=== PATIENT | female | born 1995 | race African-American/Black ===

== ENCOUNTER 2021-07-14 12:45 | Emergency (ER) | payer OTHER ==
[~2021-07-14] VITALS: Ht 149.9 cm; Wt 60.8 kg
[2021-07-14 12:46] VITALS: BP 121/80
--- NOTE | 2021-07-14 13:55 | REP ---
INDICATION: trauma COMPARISON: None. TECHNIQUE: AP, lateral, bilateral oblique views. FINDINGS: No acute fracture or dislocation. Skeletal structures and joint spaces are intact and normal. Ankle mortise appears stable. No subcutaneous emphysema or radiodense foreign body. IMPRESSION: Normal right ankle radiograph series. <Electronically signed by Henrik Chun > 07/14/21 [id number]
== END 2021-07-14 15:24 | disposition home or self-care (01) ==
LOC: M ED 12:45
DX: S93.401A Sprain of unspecified ligament of right ankle, initial encounter (principal); X50.9XXA Other and unspecified overexertion or strenuous movements or postures, initial encounter; Y92.018 Other place in single-family (private) house as the place of occurrence of the external cause; Z88.0 Allergy status to penicillin

== ENCOUNTER 2021-09-27 15:31 | Emergency (ER) | payer OTHER ==
[~2021-09-27] VITALS: Ht 160 cm; Wt 56.8 kg
[2021-09-27 18:00] LABS: HEMATOCRIT 40.7 % (36.0-47.0); HEMOGLOBIN 13.8 g/dl (12.0-15.5); MEAN CORPUSCULAR HEMOGLOBIN 29.2 pg (27.0-33.0); MEAN CORPUSCULAR HGB CONC 33.9 g/dl (32.0-36.5); MEAN CORPUSCULAR VOLUME 86.2 fl (80.0-96.0); PLATELET COUNT, AUTOMATED 286 10^3/uL (150-450); RED BLOOD COUNT 4.72 10^6/uL (4.00-5.40)
[2021-09-27 18:23] LABS: HCG, SERUM QUALITATIVE POSITIVE (NEGATIVE)
[2021-09-27 18:30] LABS: ACETAMINOPHEN LEVEL < 2.0 UG/ML (10.0-30.0); ALT/SGPT 24 U/L (12-78); BILIRUBIN,DIRECT 0.1 MG/DL (0.0-0.2); BILIRUBIN,TOTAL 0.4 MG/DL (0.2-1.0); BLOOD UREA NITROGEN 11 MG/DL (7-18); CALCIUM LEVEL 9.1 MG/DL (8.5-10.1); CARBON DIOXIDE LEVEL 25 MEQ/L (21-32); CHLORIDE LEVEL 106 MEQ/L (98-107); CREATININE FOR GFR 0.73 MG/DL (0.55-1.30); ETHYL ALCOHOL (ETHANOL) 0.003 % (0.000-0.010); GLOMERULAR FILTRATION RATE > 60.0 (>60); GLUCOSE, FASTING 72 MG/DL (70-100); POTASSIUM SERUM 3.8 MEQ/L (3.5-5.1); SALICYLATE LEVEL < 1.7 MG/DL (5.0-30.0); SODIUM LEVEL 138 MEQ/L (136-145)
[2021-09-27 18:37] LABS: AMPHETAMINES LEVEL URINE NEGATIVE (NEGATIVE); BARBITURATES URINE NEGATIVE (NEGATIVE); BENZODIAZEPINES URINE NEGATIVE (NEGATIVE); CANNABINOIDS URINE NEGATIVE (NEGATIVE); COCAINE METABOLITE URINE NEGATIVE (NEGATIVE); METHADONE URINE NEGATIVE (NEGATIVE); OPIATES URINE NEGATIVE (NEGATIVE); PHENCYCLIDINE URINE NEGATIVE (NEGATIVE)
[2021-09-27 19:43] VITALS: BP 134/72
== END 2021-09-27 19:45 | disposition home or self-care (01) ==
LOC: M ED 15:31
DX: Z04.6 Encounter for general psychiatric examination, requested by authority (principal); Z33.1 Pregnant state, incidental; S50.812A Abrasion of left forearm, initial encounter; X58.XXXA Exposure to other specified factors, initial encounter; Y92.89 Other specified places as the place of occurrence of the external cause; Z88.0 Allergy status to penicillin

== ENCOUNTER 2022-05-27 00:42 | Inpatient (IN) | payer OTHER ==
[~2022-05-27] VITALS: Ht 154.9 cm; Wt 71.1 kg
[2022-05-27] VITALS (43 sets, daily range): BP systolic 114–191; BP diastolic 64–106
[~2022-05-27 00:42] MED LIST: MULTTAB20 PO; SERT50TA29 PO
[2022-05-27 02:18] LABS: HEMATOCRIT 40.8 % (36.0-47.0); HEMOGLOBIN 13.8 g/dl (12.0-15.5); MEAN CORPUSCULAR HEMOGLOBIN 29.3 pg (27.0-33.0); MEAN CORPUSCULAR HGB CONC 33.8 g/dl (32.0-36.5); MEAN CORPUSCULAR VOLUME 86.6 fl (80.0-96.0); PLATELET COUNT, AUTOMATED 188 10^3/uL (150-450); RED BLOOD COUNT 4.71 10^6/uL (4.00-5.40); WHITE BLOOD COUNT 13.6 10^3/uL (4.0-10.0)
[2022-05-27] MEDS ORDERED: LACTATED RINGER'S 1000 ML IV STA (02:26)
[2022-05-27] MEDS ORDERED: LIDOCAINE 1% MDV 20ML VIAL INFIL PRN (02:30)
[2022-05-27] MEDS ORDERED: LR 1,000 ML IV SCH ×2 (02:30→10:45)
[2022-05-27] MEDS ORDERED: METHYLERGONOVINE MALEATE 0.2 MG/ML VIAL (J2210) IM PRN (02:30)
[2022-05-27] MEDS ORDERED: TRANEXAMIC ACID INJection 1,000 MG in NS 100 ML IV PRN (02:30)
[2022-05-27] MEDS ORDERED: OXYTOCIN DRIP 30 UNITS in IV 1 EA IV PRN ×4 (02:30)
[2022-05-27] MEDS ORDERED: ONDANSETRON 4MG 2ML VIAL IV PRN ×2 (02:45→10:45)
[2022-05-27] MEDS ORDERED: NALOXONE INJ 0.4MG/1ML VIAL (J2310 PER 1MG) IV PRN (02:45)
[2022-05-27] MEDS ORDERED: FENTANYL/ROPIVACAINE/NACL BAG 100 ML EPIDURAL SCH (02:45)
[2022-05-27] MEDS ORDERED: EPIDURAL/PCA KEYS XX PRN (02:45)
[2022-05-27] MEDS ORDERED: LR 500 ML IV PRN (02:45)
[2022-05-27] MEDS ORDERED: diphenhydrAMINE 50MG/ML VIAL IV PRN (02:45)
[2022-05-27] MEDS ORDERED: ePHEDrine SULFATE 25 MG/5 ML(5MG/ML) SYRINGE IVP PRN (02:45)
[2022-05-27 10:31] LABS: CORD GAS ABE V -2.1; CORD GAS HCO3 V 24.6 MEQ/L; CORD GAS O2 SAT V 83.3 %; CORD GAS PCO2 V 49.6 mmHg; CORD GAS PH V 7.314 UNITS; CORD GAS PO2 V 39.1 mmHg; CORD GAS SBC V 22.4 MEQ/L; CORD GAS TCO2 V 26.2 MEQ/L
[2022-05-27 10:32] LABS: CORD GAS ABE A -6.7; CORD GAS HCO3 A 23.3 MEQ/L; CORD GAS PCO2 A 66.7 mmHg; CORD GAS PH A 7.161 UNITS; CORD GAS PO2 A 24.9 mmHg; CORD GAS SBC A 17.8 MEQ/L; CORD GAS TCO2 A 25.3 MEQ/L
[2022-05-27] MEDS ORDERED: RHOGAM 300 MCG (1500 IU) INJ (J2790) IM SCH (10:45)
[2022-05-27] MEDS ORDERED: IBUPROFEN 800 MG TAB PO PRN (10:45)
[2022-05-27] MEDS ORDERED: METHYLERGONOVINE MALEATE 0.2 MG TAB PO PRN (10:45)
[2022-05-27] MEDS ORDERED: DOCUSATE SODIUM 100MG CAPSULE PO PRN (10:45)
[2022-05-27] MEDS ORDERED: PROMETHAZINE 25 MG TAB PO PRN (10:45)
[2022-05-27] MEDS ORDERED: DIBUCAINE 1% OINTMENT 30GM TOP PRN (10:45)
[2022-05-27] MEDS ORDERED: IBUPROFEN 600MG TAB PO PRN (10:45)
[2022-05-27] MEDS ORDERED: ACETAMINOPHEN TAB 650MG DOSE (2X325MG) PO SCH (10:45)
[2022-05-27] MEDS: PRENATAL VITAMINS CHEWABLE TABLET PO SCH (11:53)
[2022-05-27] MEDS: ACETAMINOPHEN 500 MG TAB PO SCH ×2 (11:54→18:10)
[2022-05-28] MEDS: ACETAMINOPHEN 500 MG TAB PO SCH ×4 (05:45→18:00)
[2022-05-28] MEDS ORDERED: oxyCODONE 5MG TAB PO PRN ×2 (06:30)
[2022-05-28] MEDS: PRENATAL VITAMINS CHEWABLE TABLET PO SCH (09:00)
[2022-05-28 09:10] LABS: HEMATOCRIT 34.8 % (36.0-47.0); MEAN CORPUSCULAR HEMOGLOBIN 29.7 pg (27.0-33.0); MEAN CORPUSCULAR HGB CONC 33.3 g/dl (32.0-36.5); PLATELET COUNT, AUTOMATED 195 10^3/uL (150-450); RED BLOOD COUNT 3.91 10^6/uL (4.00-5.40); WHITE BLOOD COUNT 16.2 10^3/uL (4.0-10.0)
[2022-05-28 09:29] LABS: HEMOGLOBIN 11.6 g/dl (12.0-15.5)
[2022-05-28] MEDS ORDERED: TRANEXAMIC ACID INJection 1,000 MG in D5W 100 ML IV ONE ×2 (12:30→14:25)
[2022-05-28] MEDS ORDERED: PERCOCET 5MG/325MG TAB PO PRN (13:05)
[2022-05-28 13:40] LABS: BASO % 0.3 % (0.0-1.0); EOS # 0.1 10^3/uL (0.0-0.5); EOS % 0.3 % (0.0-3.0); HEMATOCRIT 33.8 % (36.0-47.0); HEMOGLOBIN 11.3 g/dl (12.0-15.5); LYMPH # 2.5 10^3/uL (1.5-5.0); LYMPH % 16.7 % (24.0-44.0); MEAN CORPUSCULAR HEMOGLOBIN 29.5 pg (27.0-33.0); MEAN CORPUSCULAR HGB CONC 33.4 g/dl (32.0-36.5); MEAN CORPUSCULAR VOLUME 88.3 fl (80.0-96.0); MONO # 0.7 10^3/uL (0.0-0.8); MONO % 4.9 % (2.0-8.0); NEUTROPHILS # 11.5 10^3/uL (1.5-8.5); NEUTROPHILS % 76.7 % (36.0-66.0); PLATELET COUNT, AUTOMATED 187 10^3/uL (150-450); RED BLOOD COUNT 3.83 10^6/uL (4.00-5.40)
[2022-05-28 18:00] VITALS: BP 126/85
[2022-05-29] MEDS: ACETAMINOPHEN 500 MG TAB PO SCH ×3 (00:11→11:20)
[2022-05-29 06:00] VITALS: BP 124/79
[2022-05-29] MEDS ORDERED: MEASLES,MUMPS,RUBELLA VACCINE INJ (MMR-II) (90707) SC.IMMUN ONE (09:00)
[2022-05-29] MEDS: PRENATAL VITAMINS CHEWABLE TABLET PO SCH (09:00)
[2022-05-30] MEDS ORDERED: DOXY-443 PO (01:47)
== END 2022-05-29 14:57 | disposition home or self-care (01) | DRG 806 ==
LOC: M LDO 00:42 → M LDI 01:34 → M OBS 13:55
PROVIDERS: ADMIT Obstetrics & Gynecology; ATTEND Obstetrics & Gynecology
PROC: 10E0XZZ Delivery of Products of Conception, External Approach (ICD-10-PCS; principal; 2022-05-27)
PROC: 0HQ9XZZ Repair Perineum Skin, External Approach (ICD-10-PCS; 2022-05-27)
DX: O70.0 First degree perineal laceration during delivery (principal); Z37.0 Single live birth; O71.7 Obstetric hematoma of pelvis; Z3A.37 37 weeks gestation of pregnancy

== ENCOUNTER 2022-05-29 21:29 | Emergency (ER) | payer OTHER ==
[~2022-05-29] VITALS: Ht 154.9 cm; Wt 66.5 kg
[2022-05-29] MEDS ORDERED: LIDOCAINE 1% MDV 20ML VIAL SC ONE (23:55)
[2022-05-29] MEDS ORDERED: KETOROLAC 60MG 2ML VIAL IM ONE (23:55)
[2022-05-29] MEDS ORDERED: ACETAMINOPHEN 500 MG TAB PO ONE (23:55)
[2022-05-30 00:29] LABS: BASO # 0.1 10^3/uL (0.0-0.2); BASO % 0.3 % (0.0-1.0); EOS # 0.2 10^3/uL (0.0-0.5); EOS % 1.1 % (0.0-3.0); HEMATOCRIT 39.2 % (36.0-47.0); HEMOGLOBIN 13.1 g/dl (12.0-15.5); LYMPH # 2.5 10^3/uL (1.5-5.0); MEAN CORPUSCULAR HEMOGLOBIN 29.3 pg (27.0-33.0); MEAN CORPUSCULAR HGB CONC 33.4 g/dl (32.0-36.5); MEAN CORPUSCULAR VOLUME 87.7 fl (80.0-96.0); MONO # 0.8 10^3/uL (0.0-0.8); MONO % 5.4 % (2.0-8.0); NEUTROPHILS # 10.9 10^3/uL (1.5-8.5); PLATELET COUNT, AUTOMATED 249 10^3/uL (150-450); RED BLOOD COUNT 4.47 10^6/uL (4.00-5.40); WHITE BLOOD COUNT 14.6 10^3/uL (4.0-10.0)
[2022-05-30 00:48] LABS: ERYTHROCYTE SEDIMENTATION RATE 62 mm/hr (0-20)
[2022-05-30] MEDS ORDERED: DOXY-443 PO (01:47)
[2022-05-30] MEDS ORDERED: DOXYCYCLINE HYCLATE 100MG TABLET PO ONE (01:50)
[2022-05-30 02:15] VITALS: BP 121/61
== END 2022-05-30 02:16 | disposition home or self-care (01) ==
LOC: M ED 21:29
DX: L02.214 Cutaneous abscess of groin (principal); Z79.899 Other long term (current) drug therapy; Z88.0 Allergy status to penicillin
CPT/HCPCS: 10060; 76882; 85025; 85652; 86140; 87070; 87076; 96372; 99283; J1885

== ENCOUNTER → 2022-10-08 | Outpatient (REF) ==
[~2022-10-08] MED LIST changes: +DOXY-443 PO
== END ==
LOC: M PLAIMG 10:33
PROVIDERS: ATTEND Internal Medicine
DX: R52 Pain, unspecified (principal)